=== PATIENT | female | born 1975 | race Caucasian/White ===

== ENCOUNTER → 2017-09-03 | Outpatient (CLI) | payer OTHER, BC | END | disposition home or self-care (01) | LOC: CFH 08:28 | PROVIDERS: ATTEND Obstetrics & Gynecology | DX: Z12.31 Encounter for screening mammogram for malignant neoplasm of breast (principal) | CPT/HCPCS: 77063; 77067 ==

== ENCOUNTER → 2018-09-04 | Outpatient (CLI) | payer BC | END | disposition home or self-care (01) | LOC: CFH 10:00 | PROVIDERS: ATTEND Obstetrics & Gynecology | DX: Z12.31 Encounter for screening mammogram for malignant neoplasm of breast (principal) | CPT/HCPCS: 77063; 77067 ==

== ENCOUNTER → 2019-09-06 | Outpatient (CLI) | payer BC | END | disposition home or self-care (01) | LOC: CFH 09:17 | PROVIDERS: ATTEND Obstetrics & Gynecology | DX: Z12.31 Encounter for screening mammogram for malignant neoplasm of breast (principal) | CPT/HCPCS: 77063; 77067 ==

== ENCOUNTER 2020-01-18 12:56 | Outpatient (CLI) | payer BC ==
[2020-01-18] MEDS ORDERED: NONE PER PT (13:27)
[2020-01-18 13:49] LABS: MICROSCOPIC NOT IND
[2020-01-18 13:56] LABS: BASOPHILS # (AUTO) 0.04 x10^3/uL (0-0.1); BASOPHILS % (AUTO) 1 % (0-1); EOSINOPHILS # (AUTO) 0.16 x10^3/uL (0-0.4); EOSINOPHILS % (AUTO) 3 % (1-7); LYMPHOCYTES # (AUTO) 2.84 x10^3/uL (1-3.4); LYMPHOCYTES % (AUTO) 49 % (22-44); MD NO; MEAN CORPUSCULAR HEMOGLOBIN 31.2 pg (27.0-34.8); MEAN CORPUSCULAR HGB CONC 34.2 g/dL (32.4-35.8); MEAN CORPUSCULAR VOLUME 91.4 fL (80-100); MEAN PLATELET VOLUME 7.4 fL (7.4-10.4); MONOCYTES # (AUTO) 0.29 x10^3/uL (0.2-0.8); MONOCYTES % (AUTO) 5 % (2-9); NEUTROPHILS # (AUTO) 2.51 x10^3/uL (1.8-6.8); NEUTROPHILS % (AUTO) 43 % (42-75); PLATELET COUNT 353 x10^3/uL (130-400); RED BLOOD COUNT 4.11 x10^6/uL (3.82-5.3); RED CELL DISTRIBUTION WIDTH 14.3 % (9.6-15.2)
== END 2020-01-18 23:59 | disposition home or self-care (01) ==
LOC: STAR 12:56
PROVIDERS: ATTEND Obstetrics & Gynecology
DX: Z01.818 Encounter for other preprocedural examination (principal); Z11.59 Encounter for screening for other viral diseases; R10.2 Pelvic and perineal pain; N94.6 Dysmenorrhea, unspecified
CPT/HCPCS: 36415; 81003; 85025; U0001

== ENCOUNTER 2020-01-27 07:30 | Day surgery (SDC) | payer BC ==
[~2020-01-27] VITALS: Ht 142.2 cm; Wt 59.0 kg
[~2020-01-27 07:30] MED LIST: NONE PER PT
[2020-01-27] MEDS ORDERED: MIDAZOLAM 1 MG/ML, 2ML ONE (07:59)
[2020-01-27] MEDS ORDERED: FENTANYL PF 250 MCG/5ML ONE (08:00)
[2020-01-27] MEDS ORDERED: LACTATED RINGERS 1,000 ML IV SCH (08:15)
[2020-01-27] MEDS ORDERED: CHLORHEXIDINE 15 ML UDC ONE (08:26)
[2020-01-27] MEDS ORDERED: GABAPENTIN 300 MG CAPSULE PO ONE (08:30)
[2020-01-27] MEDS ORDERED: ACETAMINOPHEN 500 MG TABLET PO ONE (08:30)
[2020-01-27] MEDS ORDERED: OxyconTIN ER 10 MG TAB.ER PO ONE (08:30)
[2020-01-27 08:44] LABS: HCG UR SG 1.019 (1.003-1.030)
[2020-01-27] MEDS ORDERED: CHLORHEXIDINE 15 ML UDC MM STA (08:50)
[2020-01-27] MEDS ORDERED: FLUORESCEIN SODIUM 500 MG/5 ML ONE (09:40)
[2020-01-27] MEDS ORDERED: BUPIVACAINE/PF-EPI 0.25% 1:200K ONE (09:40)
[2020-01-27] MEDS ORDERED: FENTANYL PF 100 MCG/2ML IV PRN (10:00)
[2020-01-27] MEDS ORDERED: PROMETHAZINE 25 MG/ML, 1ML IVPush PRN (10:00)
[2020-01-27] MEDS ORDERED: OXYcodone 5 MG/5 ML ORAL.SOL UDC PO PRN (10:00)
[2020-01-27] MEDS ORDERED: HYDROmorphone 1 MG/ML, 1ML INJ IVPush PRN (10:00)
[2020-01-27] MEDS ORDERED: LABETALOL 5MG/ML, 20ML IV PRN (10:00)
[2020-01-27] MEDS ORDERED: hydrALAzine 20 MG/ML, 1ML IV PRN (10:00)
[2020-01-27] MEDS ORDERED: MEPERIDINE/PF 25MG/0.5ML IVPush PRN (10:00)
[2020-01-27] MEDS ORDERED: ONDANSETRON 2MG/ML, 2ML IVPush PRN (10:00)
[2020-01-27] MEDS ORDERED: DEXAMETHASONE 4 MG/ML, 1ML ONE (10:14)
[2020-01-27] MEDS ORDERED: ONDANSETRON 2MG/ML, 2ML ONE (10:53)
[2020-01-27] MEDS ORDERED: ROCURONIUM 10MG/ML,5ML ONE (10:53)
[2020-01-27] MEDS ORDERED: PROPOFOL 10 MG/ML, 20ML ONE (10:53)
== END 2020-01-27 16:20 | disposition home or self-care (01) ==
LOC: OUT 07:30
PROVIDERS: ATTEND Obstetrics & Gynecology
DX: N94.6 Dysmenorrhea, unspecified (principal); N92.0 Excessive and frequent menstruation with regular cycle; D25.1 Intramural leiomyoma of uterus; N80.1 Endometriosis of ovary; N80.2 Endometriosis of fallopian tube; N84.0 Polyp of corpus uteri; N81.5 Vaginal enterocele; N83.6 Hematosalpinx; N83.01 Follicular cyst of right ovary; N73.6 Female pelvic peritoneal adhesions (postinfective); N83.8 Other noninflammatory disorders of ovary, fallopian tube and broad ligament; E78.5 Hyperlipidemia, unspecified; Z98.890 Other specified postprocedural states
CPT/HCPCS: 36415; 57268; 58552; 81025; 85014; 85018; 86850; 86900; 88307; J1100; J2250; J2405; J2704; J3010; J7120

== ENCOUNTER → 2020-09-08 | Outpatient (CLI) | payer BC | END | disposition home or self-care (01) | LOC: CFH 09:40 | PROVIDERS: ATTEND Obstetrics & Gynecology | DX: Z12.31 Encounter for screening mammogram for malignant neoplasm of breast (principal) | CPT/HCPCS: 77063; 77067 ==